=== PATIENT | male | born 2005 | race Caucasian/White ===

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

== ENCOUNTER 2024-12-28 10:03 | Emergency (ER) | payer BC ==
[2024-12-28 10:08] VITALS: RESP 18
--- NOTE | 2024-12-28 10:23 | ED ---
General Adult HPI - General Chief complaint: Recheck/Abnormal Lab/Rx Stated complaint: chest pains,vomiting Time Seen by Provider: 12/28/24 10:13 Source: patient, RN notes reviewed Mode of arrival: ambulatory Limitations: no limitations - History of Present Illness Initial comments: This is a 19-year-old male complaining of burning sensation in mid chest since last night. Patient states he was eating steak when a piece became lodged in his throat, eventually vomiting it up with significant burning through his chest and throat since that time. Patient endorses history of minor intermittent GERD and never this severe. Denies ongoing foreign body sensation, dyspnea/SOB, radiating pain, nausea, vomiting, diarrhea/constipation, hematemesis. Endorses use of [place] and famotidine with minimal relief. Onset/Timin -: days(s) Quality: burning Consistency: constant Treatments Prior to Arrival: other ([place], famotidine) - Related Data Home Medications Medication Instructions Recorded Confirmed No Known Home Medications 08/23/18 02/05/22 Allergies Allergy/AdvReac Type Severity Reaction Status Date / Time No Known Allergies Allergy Verified 12/28/24 10:07 Review of Systems ROS Statement: Those systems with pertinent positive or pertinent negative responses have been documented in the HPI. ROS Other: All systems not noted in ROS Statement are negative. Past Medical History Past Medical History: No Reported History History of Any Multi-Drug Resistant Organisms: None Reported Past Surgical History: No Surgical Hx Reported Past Psychological History: No Psychological Hx Reported Smoking Status: Vaper Past Alcohol Use History: Occasional Past Drug Use History: None Reported General Exam Limitations: no limitations General appearance: alert, in no apparent distress Head exam: Present: atraumatic, normocephalic, normal inspection Eye exam: Present: normal appearance, PERRL, EOMI. Absent: scleral icterus, conjunctival injection, periorbital swelling ENT exam: Present: normal exam, mucous membranes moist, other (Erythematous oropharynx without edema) Neck exam: Present: normal inspection. Absent: tenderness, meningismus, lymphadenopathy Respiratory exam: Present: normal lung sounds bilaterally. Absent: respiratory distress, wheezes, rales, rhonchi, stridor Cardiovascular Exam: Present: regular rate, normal rhythm, normal heart sounds. Absent: systolic murmur, diastolic murmur, rubs, gallop, clicks GI/Abdominal exam: Present: soft, tenderness (Positive epigastric TTP without guarding. Remaining abdomen is nontender), normal bowel sounds. Absent: distended, guarding, rebound, rigid Extremities exam: Present: normal inspection, full ROM, normal capillary refill. Absent: tenderness, pedal edema, joint swelling, calf tenderness Back exam: Present: normal inspection Neurological exam: Present: alert, oriented X3, CN II-XII intact Psychiatric exam: Present: normal affect, normal mood Skin exam: Present: warm, dry, intact, normal color. Absent: rash Course Vital Signs 12/28/24 10:04 Temperature 97.3 F L Pulse Rate 63 Respiratory 18 Rate Blood Pressure 127/72 O2 Sat by Pulse 99 Oximetry Medical Decision Making - Medical Decision Making Was pt. sent in by a medical professional or institution (, PA, SHIFTMAN, urgent care, hospital, or retirement...) When possible be specific @ -No Did you speak to anyone other than the patient for history (EMS, parent, family, police, friend...)? What history was obtained from this source @ -No Did you review nursing and triage notes (agree or disagree)? Why? @ -I reviewed and agree with nursing and triage notes Were old charts reviewed (outside hosp., previous admission, EMS record, old EKG, old radiological studies, urgent care reports/EKG's, retirement records)? Report findings @ -No old charts were reviewed Differential Diagnosis (chest pain, altered mental status, abdominal pain women, abdominal pain men, vaginal bleeding, weakness, fever, dyspnea, syncope, headache, dizziness, GI bleed, back pain, seizure, CVA, palpatations, mental health, musculoskeletal)? @ -Differential Abdominal Pain Men: Appendicitis, cholecystitis, diverticulosis, ischemic bowel, pancreatitis, hepatitis, UTI, gastroenteritis, AAA, incarcerated hernia, bowel obstruction, constipation, inflammatory bowel, hepatitis, peptic ulcer disease, splenic infarction, perforated viscus, testicular torsion, this is not meant to be an all-inclusive list EKG interpreted by me (3pts min.). @ -Sinus rhythm with sinus arrhythmia and no ST deviation or T wave inversion. Ventricular rate 97 bpm, JOSELYN 115 ms, QRS 90 ms, QTc 384 ms. X-rays interpreted by me (1pt min.). @ -CXR shows no acute cardiopulmonary process. Negative pneumomediastinum CT interpreted by me (1pt min.). @ -None done U/S interpreted by me (1pt. min.). @ -None done What testing was considered but not performed or refused? (CT, X-rays, U/S, labs)? Why? @ -None What meds were considered but not given or refused? Why? @ -None Did you discuss the management of the patient with other professionals (professionals i.e. Dr., PA, SHIFTMAN, lab, RT, psych nurse, licensed master social worker, risk consulting treasury director, teacher, diplomatic officer, behavioral health case manager)? Give summary @ -Spoke to Dr. Prado from [facility] who advised patient expedite self transport to [facility]. Dr. Prado advised texting him when patient is leaving so he can expect him when he arrives. Was smoking cessation discussed for >3mins.? @ -No Was critical care preformed (if so, how long)? @ -No Were there social determinants of health that impacted care today? How? (Homelessness, low income, unemployed, alcoholism, drug addiction, transportation, low edu. Level, literacy, decrease access to med. care, detention, rehab)? @ -No Was there de-escalation of care discussed even if they declined (Discuss DNR or withdrawal of care, Hospice)? DNR status @ -No What co-morbidities impacted this encounter? (DM, HTN, Smoking, COPD, CAD, Cancer, CVA, ARF, Chemo, Hep., AIDS, mental health diagnosis, sleep apnea, morbid obesity)? @ -None Was patient admitted / discharged? Hospital course, mention meds given and route, prescriptions, significant lab abnormalities, going to OR and other pertinent info. @ -Initially attempted IV Pepcid, Protonix and p.o. viscous lidocaine with no relief and vomiting of lidocaine. Then attempted IV Reglan, glucagon and p.o. Maalox with relief noted by patient and vomiting of some meat/steak material. Patient states he feels better and has had several sips of Pepsi without vomiting. Encouraged patient to continue drinking Pepsi with subsequent vomiting after next attempt. Additional IV glucagon and p.o. lidocaine then provided with no relief and patient still noting buildup of Pepsi near base of esophagus. Attempted having patient jump in place several times to relieve obstruction without relief. Spoke to Dr. Fawad Prado at [facility] who advised for patient to transport by personal vehicle to ER and to text him when patient leaves so he can expect him upon arrival. Advised patient of plan, who is receptive. Discussed patient with Dr. Moran. Undiagnosed new problem with uncertain prognosis? @ -No Drug Therapy requiring intensive monitoring for toxicity (Heparin, Nitro, Insulin, Cardizem)? @ -No Were any procedures done? @ -No Diagnosis/symptom? @ -Esophageal obstruction Acute, or Chronic, or Acute on Chronic? @ -Acute Uncomplicated (without systemic symptoms) or Complicated (systemic symptoms)? @ -Complicated Side effects of treatment? @ -No Exacerbation, Progression, or Severe Exacerbation? @ -No Poses a threat to life or bodily function? How? (Chest pain, [place], [place], pneumonia, PE, COPD, DKA, ARF, appy, cholecystitis, CVA, Diverticulitis, Homicidal, Suicidal, threat to staff... and all critical care pts) @ -No Disposition Clinical Impression: Esophageal obstruction due to food impaction Disposition: HOME SELF-CARE Condition: Good Additional Instructions: Travel directly to [facility] and meet with Dr. Prado for further evaluation and treatment. Is patient prescribed a controlled substance at d/c from ED?: No Referrals: None,Stated [Primary Care Provider] - 1-2 days Sadaf Melo MD [STAFF PHYSICIAN] - 1-2 days Time of Disposition: 12:44
[2024-12-28] MEDS: FAMOTIDINE 20 MG/2 ML VIAL IV STA (10:43)
[2024-12-28] MEDS: LIDOCAINE VISCOUS 2% 15 ML CUP PO ONE ×2 (10:43→12:41)
[2024-12-28] MEDS: PANTOPRAZOLE 40 MG/10 ML VIAL IVP STA (10:44)
[2024-12-28] MEDS: METOCLOPRAMIDE 5 MG/ML 2 ML VIAL IVP STA (11:42)
[2024-12-28] MEDS: MAG HYDROX/AL HYDROX/SIMETH 30 ML CUP PO PRN (11:53)
[2024-12-28] MEDS: GLUCAGON 1 MG/ML VIAL IVP STA ×2 (12:04→13:02)
--- NOTE | 2024-12-28 12:37 | XR ---
EXAMINATION TYPE: XR chest 2V DATE OF EXAM: 12/28/2024 CLINICAL INDICATION: Male, 19 years old with history of Chest pain, vomiting following FB obstruction , TECHNIQUE: Frontal and lateral views of the chest are obtained. COMPARISON: CXR from 2018. FINDINGS: There is no focal air space opacity, pleural effusion, or pneumothorax seen. The cardiac silhouette size is within normal limits. The osseous structures are intact. IMPRESSION: No acute process. [facility], , 12/28/2024 12:34 PM
[2024-12-28 14:14] VITALS: BP 109/65; PULSE 98; TEMP 98
== END 2024-12-28 14:15 | disposition home or self-care (01) ==
LOC: EC 10:03
DX: T18.128A Food in esophagus causing other injury, initial encounter (principal); F17.290 Nicotine dependence, other tobacco product, uncomplicated; W44.F3XA Food entering into or through a natural orifice, initial encounter
CPT/HCPCS: 93005; 71046; 99285; 96374; 96375 ×3; 96376; J1610; J2765; J3490; J2470

== ENCOUNTER 2025-02-01 08:38 | Emergency (ER) | payer BC ==
--- NOTE | 2025-02-01 09:31 | ED ---
Abdominal Pain HPI - General Chief Complaint: Abdominal Pain Stated Complaint: abd pain Time Seen by Provider: 02/01/25 08:47 Source: patient, RN notes reviewed Mode of arrival: ambulatory Limitations: no limitations - History of Present Illness Initial Comments: 19-year-old male presenting with epigastric abdominal pain. Patient states it has been going on for 4 days. He believed it was due to increased stool burden and has been doing colon cleanse and laxative. Patient states he has had loss of appetite and only tolerating liquids. He reports nausea without vomiting. Patient reports he presented to the ER and was transferred to [place] as we did not have GI coverage. Patient was evaluated by Dr. Prado and underwent EGD which showed eosinophilic esophagitis. Patient reports he was started on Protonix, but has not been compliant. Denies fevers, chills, URI symptoms, sick contacts. Location: epigastric - Related Data Home Medications Medication Instructions Recorded Confirmed Pantoprazole [Protonix] 40 mg PO DAILY PRN 02/01/25 02/01/25 Allergies Allergy/AdvReac Type Severity Reaction Status Date / Time No Known Allergies Allergy Verified 02/01/25 11:01 Review of Systems ROS Statement: Those systems with pertinent positive or pertinent negative responses have been documented in the HPI. ROS Other: All systems not noted in ROS Statement are negative. Constitutional: Denies: fever, chills Cardiovascular: Denies: chest pain, palpitations Endocrine: Denies: fatigue Gastrointestinal: Reports: abdominal pain, nausea. Denies: vomiting, diarrhea, constipation Genitourinary: Denies: urgency, dysuria Skin: Denies: rash, lesions Neurological: Denies: headache, weakness Psychiatric: Denies: anxiety, depression Past Medical History Additional Past Medical History / Comment(s): Eosinophilic esophagitis History of Any Multi-Drug Resistant Organisms: None Reported Past Surgical History: No Surgical Hx Reported Past Psychological History: No Psychological Hx Reported Smoking Status: Vaper Past Alcohol Use History: Occasional Past Drug Use History: None Reported General Exam Limitations: no limitations General appearance: alert, in no apparent distress Head exam: Absent: atraumatic, normocephalic Respiratory exam: Present: normal lung sounds bilaterally. Absent: respiratory distress, wheezes Cardiovascular Exam: Present: regular rate, normal rhythm GI/Abdominal exam: Present: soft, tenderness (Epigastric). Absent: distended Expanded GI/Abdominal exam: Absent: psoas sign, obturator sign, Porter's sign, Rovsing's sign, tenderness at McBurney's Point, ascites Extremities exam: Present: normal inspection, full ROM. Absent: tenderness Neurological exam: Present: alert, oriented X3 Psychiatric exam: Present: normal affect, normal mood Skin exam: Present: warm, dry, intact Course Vital Signs 02/01/25 02/01/25 02/01/25 08:39 11:34 13:10 Temperature 97.9 F 97.8 F 98.1 F Pulse Rate 73 60 78 Respiratory 16 18 18 Rate Blood Pressure 147/73 128/72 125/75 O2 Sat by Pulse 99 99 98 Oximetry Medical Decision Making - Medical Decision Making Was pt. sent in by a medical professional or institution (, PA, RELAY TELEGRAPHER, urgent care, hospital, or [facility]...) When possible be specific @ -No Did you speak to anyone other than the patient for history (EMS, parent, family, police, friend...)? What history was obtained from this source @ -No Did you review nursing and triage notes (agree or disagree)? Why? @ -I reviewed and agree with nursing and triage notes Were old charts reviewed (outside hosp., previous admission, EMS record, old EKG, old radiological studies, urgent care reports/EKG's, [facility] records)? Report findings @ -No old charts were reviewed Differential Diagnosis? @ -Differential Abdominal Pain Men: Appendicitis, cholecystitis, diverticulosis, ischemic bowel, pancreatitis, hepatitis, UTI, gastroenteritis, AAA, incarcerated hernia, bowel obstruction, constipation, inflammatory bowel, hepatitis, peptic ulcer disease, splenic infarction, perforated viscus, testicular torsion, this is not meant to be an all-inclusive list EKG interpreted by me (3pts min.). @ -EKG interpreted by me sinus bradycardia with short MT interval, ventricular rate of 40, QTc 357 ms, no ST wave changes suggestive of ischemia X-rays interpreted by me (1pt min.). @ -KUB x-ray showed air in colon. No signs of increased stool burden. No free air in the abdomen. CT interpreted by me (1pt min.). @ -None done U/S interpreted by me (1pt. min.). @ -None done What testing was considered but not performed or refused? (CT, X-rays, U/S, labs)? Why? @ -None What meds were considered but not given or refused? Why? @ -None Did you discuss the management of the patient with other professionals (professionals i.e. , PA, RELAY TELEGRAPHER, lab, RT, psych nurse, social and human services assistant, scada operator, teacher, annual giving officer, major case detective)? Give summary @ -Case was discussed with ED attending Dr. Gallegos. Was smoking cessation discussed for >3mins.? @ -No Was critical care preformed (if so, how long)? @ -No Were there social determinants of health that impacted care today? How? (Homelessness, low income, unemployed, alcoholism, drug addiction, transportation, low edu. Level, literacy, decrease access to med. care, longterm, rehab)? @ -No Was there de-escalation of care discussed even if they declined (Discuss DNR or withdrawal of care, Hospice)? DNR status @ -No What co-morbidities impacted this encounter? (DM, HTN, Smoking, COPD, CAD, Cancer, CVA, ARF, Chemo, Hep., AIDS, mental health diagnosis, sleep apnea, morbid obesity)? @ -None Was patient admitted / discharged? Hospital course, mention meds given and route, prescriptions, significant lab abnormalities, going to OR and other pertinent info. @ -Patient received GI cocktail in ER with minimal relief. Patient declined Zofran. Patient given 1 dose of simethicone. X-ray did not show signs of increased stool burden. Patient will be discharged home. Patient to follow-up with PCP in 1 to 2 days. Patient to follow-up with GI in 1 to 2 days. Undiagnosed new problem with uncertain prognosis? @ -No Drug Therapy requiring intensive monitoring for toxicity (Heparin, Nitro, Insulin, Cardizem)? @ -No Were any procedures done? @ -No Diagnosis/symptom? @ -Abdominal pain, eosinophilic esophagitis Acute, or Chronic, or Acute on Chronic? @ -Acute Uncomplicated (without systemic symptoms) or Complicated (systemic symptoms)? @ -Uncomplicated Side effects of treatment? @ -No Exacerbation, Progression, or Severe Exacerbation? @ -No Poses a threat to life or bodily function? How? (Chest pain, USA, CO, pneumonia, PE, COPD, DKA, ARF, appy, cholecystitis, CVA, Diverticulitis, Homicidal, Suicidal, threat to staff... and all critical care pts) @ -No - Lab Data Result diagrams: 02/01/25 09:52 02/01/25 09:52 Lab Results 02/01/25 02/01/25 Range/Units 09:52 09:52 WBC 8.20 (4.50-10.00) 10*3/uL RBC 5.25 (4.40-5.60) 10*6/uL Hgb 15.8 (13.0-17.0) g/dL Hct 43.4 (39.6-50.0) % MCV 82.7 (80.0-97.0) fL MCH 30.1 (27.0-32.0) pg MCHC 36.4 (32.0-37.0) g/dL Plt Count 306 (140-440) 10*3/uL MPV 9.6 (9.5-12.2) fL Immature Gran % (Auto) 0.2 % Neutrophils % 72.1 % Lymphocytes % 20.0 % Monocytes % 6.0 % Eosinophils % 1.3 % Basophils % 0.4 % Immature Gran # 0.02 (0.00-0.04) 10*3/uL Neutrophils # 5.91 (1.80-7.70) 10*3/uL Lymphocytes # 1.64 (0.90-5.00) 10*3/uL Monocytes # 0.49 (0.20-1.00) 10*3/uL Eosinophils # 0.11 (0.04-0.35) 10*3/uL Basophils # 0.03 (0.00-0.10) 10*3/uL Sodium 139 (137-145) mmol/L Potassium 4.4 (3.5-5.1) mmol/L Chloride 100 (98-107) mmol/L Carbon Dioxide 24 (22-30) mmol/L Anion Gap 15 mmol/L BUN 17 (9-20) mg/dL Creatinine 0.81 (0.66-1.25) mg/dL Est GFR (CKD-EPI)AfAm >90 (>60 ml/min/1.73 sqM) Est GFR (CKD-EPI)NonAf >90 (>60 ml/min/1.73 sqM) Glucose 73 L (74-99) mg/dL Calcium 10.4 H (8.4-10.2) mg/dL Total Bilirubin 1.0 (0.2-1.3) mg/dL AST 23 (17-59) U/L ALT 13 (4-49) U/L Alkaline Phosphatase 82 (38-126) U/L Total Protein 8.2 (6.3-8.2) g/dL Albumin 5.3 H (3.5-5.0) g/dL Amylase 46 (30-110) U/L Lipase 46 (23-300) U/L Disposition Clinical Impression: Abdominal pain, Eosinophilic esophagitis Disposition: HOME SELF-CARE Additional Instructions: Patient will be discharged home with self-care. Advised to discontinue any laxatives. Advised to take PPI as instructed. Simethicone as needed for gas and bloating. Patient to follow-up with PCP in 1 to 2 days. Recommended close follow-up outpatient with GI. Return to ER if symptoms worsen or persist. Is patient prescribed a controlled substance at d/c from ED?: No Referrals: None,Stated [Primary Care Provider] - 1-2 days Sadaf Melo MD [STAFF PHYSICIAN] - 1-2 days Time of Disposition: 13:00
[2025-02-01] MEDS: MAG HYDROX/AL HYDROX/SIMETH 30 ML CUP PO STA (09:46)
[2025-02-01] MEDS: LIDOCAINE VISCOUS 2% 15 ML CUP PO ONE (09:47)
[2025-02-01 10:02] LABS: Basophils # (A) 0.03 10*3/uL (0.00-0.10); Basophils % (A) 0.4 %; Eosinophils # (A) 0.11 10*3/uL (0.04-0.35); Eosinophils % (A) 1.3 %; HCT 43.4 % (39.6-50.0); HGB 15.8 g/dL (13.0-17.0); Lymphocytes # (A) 1.64 10*3/uL (0.90-5.00); MCH 30.1 pg (27.0-32.0); MCHC 36.4 g/dL (32.0-37.0); MCV 82.7 fL (80.0-97.0); Mean Platelet Volume 9.6 fL (9.5-12.2); Monocytes # (A) 0.49 10*3/uL (0.20-1.00); Neutrophils # (A) 5.91 10*3/uL (1.80-7.70); Neutrophils % (A) 72.1 %; Platelet Count 306 10*3/uL (140-440); RBC 5.25 10*6/uL (4.40-5.60); RDW 11.9 % (11.5-14.5)
[2025-02-01 10:16] LABS: ALT 13 U/L (4-49); AST 23 U/L (17-59); African American GFR (CKD) >90 (>60 ml/min/1.73 sqM); Albumin 5.3 g/dL (3.5-5.0); Alkaline Phosphatase 82 U/L (38-126); Amylase 46 U/L (30-110); Anion Gap 15 mmol/L; Blood Urea Nitrogen 17 mg/dL (9-20); Calcium 10.4 mg/dL (8.4-10.2); Carbon Dioxide 24 mmol/L (22-30); Chloride 100 mmol/L (98-107); Glucose 73 mg/dL (74-99); Lipase 46 U/L (23-300); Non-African American GFR(CKD) >90 (>60 ml/min/1.73 sqM); Potassium 4.4 mmol/L (3.5-5.1); Sodium 139 mmol/L (137-145); Total Protein 8.2 g/dL (6.3-8.2)
[2025-02-01] MEDS: ONDANSETRON 4 MG/2 ML VIAL IVP STA (11:24)
[2025-02-01 11:35] VITALS: RESP 18
--- NOTE | 2025-02-01 12:21 | XR ---
EXAMINATION TYPE: XR KUB DATE OF EXAM: 02/01/2025 12:02 PM COMPARISON: 01/26/2018 CLINICAL INDICATION: Male, 19 years old with history of abdominal pain, constipation; PHH, pain TECHNIQUE: One radiographic view of the abdomen was obtained. FINDINGS: Lung bases are clear. No evidence for free intraperitoneal air. Scattered small air-fluid levels within the colon. No significant stool burden. No dilated bowel or differential air-fluid levels. No suspicious calcification is seen. IMPRESSION: 1. No evidence for free air or bowel obstruction. 2. Scattered small air-fluid levels in the colon may reflect diarrheal state or a mild ileus. 3. No significant stool burden is appreciated by CT. [facility], , 02/01/2025 12:18 PM
[2025-02-01] MEDS: SIMETHICONE 80 MG CHEWABLE PO STA (13:06)
[2025-02-01 13:12] VITALS: BP 125/75; PULSE 78; TEMP 98.1
== END 2025-02-01 13:12 | disposition home or self-care (01) ==
LOC: EC 08:38
DX: K20.0 Eosinophilic esophagitis (principal); R00.1 Bradycardia, unspecified; F17.290 Nicotine dependence, other tobacco product, uncomplicated
CPT/HCPCS: 36415; 74018; 80053; 82150; 83690; 85025; 93005; 99284

== ENCOUNTER → 2025-04-19 | Outpatient (CLI) | payer BC ==
--- NOTE | 2025-04-19 11:04 | CT ---
EXAMINATION TYPE: CT abdomen pelvis w con DATE OF EXAM: 04/19/2025 10:36 AM COMPARISON: None. CLINICAL INDICATION: Male, 19 years old with history of K59.09 constipation, weight loss TECHNIQUE:CT scan of the abdomen and pelvis is performed with Oral Contrast and with IV Contrast, pat ient injected with 100 mL of Isovue 300. CT DLP: 532.9 mGycm, Automated exposure control for dose reduction was used. FINDINGS: LUNG BASES-: No visible nodule. No infiltrate. LIVER/GB: No calcified gallstones. No space occupying hepatic lesion. Biliary tree is of normal ca liber. PANCREAS: No inflammation. No distinct mass. SPLEEN: No splenic enlargement. No lesion seen. ADRENALS: No nodule. No thickening. KIDNEYS/BLADDER: No hydronephrosis. No nephrolithiasis. No distinct renal mass. Urinary bladder g rossly unremarkable. BOWEL: Normal appendix. Normal bowel caliber. No inflammation. [id number] fecal stasis. GENITAL ORGANS: No gross abnormality. LYMPH NODES: No greater than 1cm abdominal or pelvic lymph nodes are appreciated. AORTA: No significant abnormality. OSSEOUS STRUCTURES: No significant abnormality is seen. OTHER: No significant additional abnormality is seen. IMPRESSION: 1. [id number] fecal stasis. [facility], , 04/19/2025 11:02 AM
== END | disposition home or self-care (01) ==
LOC: RADCTMAIN 08:55
PROVIDERS: ATTEND Internal Medicine Gastroenterology
DX: K56.41 Fecal impaction (principal)
CPT/HCPCS: 74177; Q9967